=== PATIENT | male | born 1990 | race Caucasian/White ===

== ENCOUNTER 2025-04-05 14:47 | Outpatient (AMB) | payer OTHER, SELFPAY ==
--- NOTE | 2025-04-05 14:51 | MHC.PC.OV ---
Vital Signs 04/05/25 14:58 04/05/25 15:05 04/05/25 15:46 04/05/25 15:46 04/05/25 16:10 04/05/25 16:11 Height 5 ft 9.75 in Weight 220 lb 2 oz BMI 31.8 BP 166/112 H 162/100 H 164/104 H 170/110 H 160/100 H 168/110 H Blood Pressure Location Rt brachial Lt brachial Rt brachial Lt brachial Rt brachial Lt brachial Position Sitting Sitting Sitting Sitting Sitting Sitting Respiration 16 Pulse 127 H 127 H 122 H 122 H Pulse Source Pulse Oximeter Pulse Oximeter Pulse Oximeter Temp 98 F Temp Source Temporal Artery Scan Pulse Oximetry (%) 97 Oxygen Delivery Method Room Air Intake Visit Reasons: SPECIAL EDUCATION COORDINATOR- Annual PE Intake Note: Ronaldo presents in the office today to establish care. Allergies No Known Allergies Allergy (Unverified 04/05/25 14:54) Medication List - Last Reconciled 04/05/25 by Ian Serrato MD clonidine HCl 0.1 mg PO TID PRN 30 days folic acid 0.4 mg PO DAILY 90 days mecobalamin (vitamin B12) 500 mcg PO DAILY 90 days thiamine HCl (vitamin B1) 100 mg PO DAILY 90 days Tobacco use date assessed: 04/05/25 Dental Screening Dental Screen Date: 04/05/25 Did you have a dental visit in the last 12 months?: No Did you have a dental problem in the last 6 months where you did not have access to dental care?: No Was dental information given to patient?: Yes HPI SPECIAL EDUCATION COORDINATOR- Annual PE HPI Details New Patient? ?? Prior PCP:?No Recent PCP Last office visit/CPE:? > 15 yrs Acute issue(s):? Alcoholism - Pt would like help quitting. HTN & Tachycardia - likely secondary to some EtOH withdrawal. Paresthesias ?? PMHx:?Alcoholism, HTN, Gout, SurgHx:?Kidney stone. FHx:?Mom: Depression. Dad: EtOH. SocHx: Smokes 1ppd, EtOH Average 10-12 shots 100proof vodka. No drugs PFSH Medical History (Updated 04/05/25 @ 15:15 by Shashi Walsh) Eczema Hypertension Kidney stones Surgical History (Updated 04/05/25 @ 15:08 by Summer Gottlieb [facility]) History of placement of ear tubes Family History (Updated 04/05/25 @ 15:09 by Summer Gottlieb CMA) Mother FH: mental illness Depression Diabetes Father Substance abuse Alcoholism Maternal Grandfather Substance abuse Alcoholism Social History (Updated 04/05/25 @ 14:58 by Summer Gottlieb [facility]) Housing: Apartment Alcohol intake: current Patient Tobacco Use Status: Current everyday Tobacco user Cigarette Packs Per Day: 1 Cigarettes Per Day: 20 e-Cigarette/Vaping Use: Never Used Second Hand Smoke Exposure: Yes service: No Current occupational status: employed Current occupation: [employer] Current occupational exposures/hazards: Yes Cognitive needs: No Hearing needs: Yes Vision needs: No Questionnaire PHQ-9 Over the last 2 weeks, how often have you been bothered by any of the following problems? 1. Little interest or pleasure in doing things: not at all 2. Feeling down, depressed, or hopeless: several days 3. Trouble falling or staying asleep, or sleeping too much: not at all 4. Feeling tired or having little energy: not at all 5. Poor appetite or overeating: not at all 6. Feeling bad about yourself - or that you are a failure or have let yourself or your family down: not at all 7. Trouble concentrating on things, such as reading the newspaper or watching television: not at all 8. Moving or speaking so slowly that other people could have noticed. Or the opposite - being so fidgety or restless that you have been moving around a lot more than usual: not at all 9. Thoughts that you would be better off or of hurting yourself in some way: not at all Total score: 1 Depression Screening Interpretation: Negative Depression Screening Done: Yes 56232 - PHQ-9 Billing: Yes Source: Developed by Drs. Edgard Tello, Alexus Yu, Yosi Storm and colleagues, with an educational mumtaz from [employer]. Thrive Questionnaire Date Thrive assessed: 04/05/25 I am a: Patient What is your living situation today?: I have a place to live, but I am worried about losing it in the future Within the past 12 months, did the food you bought not last and you didn't have the money to get more?: Sometimes True Within the past 12 months, did you worry whether your food would run out before you got money to buy more?: Sometimes True Do you have trouble paying for medicines?: No Do you have trouble getting transportation to medical appointments?: No Do you have trouble paying your heating and electricity bill?: Yes Do you have trouble taking care of your child, family member or friend?: No Do you have trouble with day-to-day activities such as bathing, preparing meals, shopping, managing finances, etc.?: Yes Are you currently unemployed and looking for a job?: No Are you interested in more education?: No Please select the resources that you would like help with: Housing/Long Term, Food and Utilities Currently or been in a relationship where the following occur: No concerns reported THRIVE Score: 4 AUDIT C Alcohol Use Questionnaire (AUDIT-C) 1. How often do you have a drink containing alcohol?: 4 or more times a week 2. How many drinks containing alcohol do you have on a typical day when you are drinking?: 10 or more 3. How often do you have six or more drinks on one occasion?: Daily or almost daily Total Score: 12 CHRIS-7 AMB Questionnaire CHRIS-7 Date CHRIS - 7 assessed: 04/05/25 Feeling nervous, anxious, or on edge: 2 = More than half the days Not being able to stop or control worryin = Several days Worrying too much about different things: 1 = Several days Trouble relaxin = Several days Being so restless that it is hard to sit still: 1 = Several days Becoming easily annoyed or irritable: 1 = Several days Feeling afraid as if something awful might happen: 1 = Several days Total CHRIS-7 score (0-4 normal; 5-9 mild; 10-14 moderate; 15-21 severe): 8 Source: Developed by Drs. Edgard Tello, Alexus Yu, Yosi Storm and colleagues, with an educational mumtaz from [employer]. CHRIS-7 Assessment Billing CHRIS-7 Assessment Tool: CHRIS-7 Assessment 14997 Review of Systems Const Denies chills, Denies fatigue, Denies fever(s), Denies headache(s) and Denies weakness ENT Denies dizziness and Denies headache(s) Card Denies chest pain, Denies lightheadedness, Denies dyspnea and Denies other (Palpitations) Resp Denies cough, Denies dyspnea, Denies wheezing and Denies other ( shortness of breath) Musc Denies numbness and Denies tingling Neuro Denies dizziness, Denies headache(s), Denies numbness, Denies tingling, Denies paresthesias and Denies weakness Psych Denies anxiety and Denies depression Endo Denies fatigue Aller/Immun Denies wheezing Physical exam (Primary Care) Vital Signs: Last Vital Signs Temp 98 F 04/05/25 14:58 Pulse 122 H 04/05/25 16:10 Resp 16 04/05/25 14:58 BP 168/110 H 04/05/25 16:11 Pulse Ox 97 04/05/25 14:58 Oxygen Delivery Method Room Air 04/05/25 14:58 BMI result Body Mass Index 31.8 Tobacco/Smoking Status: Tobacco use Status Tobacco use date assessed 04/05/25 04/05/25 14:57 Patient Tobacco Use Status Current everyday Tobacco 04/05/25 14:58 e-Cigarette/Vaping Use Never Used 04/05/25 14:58 PHQ-9: PHQ-9 Score PHQ-9: Total score 1 04/06/25 13:34 Depression Screening Interpretation: Negative Thrive Assessment: Date of Thrive Assessment Date Thrive assessed 04/05/25 04/05/25 15:01 Currently or been in a relationship where the following occur: No concerns reported Const General: no acute distress and well developed Nutritional Appearance: well nourished Orientation/consciousness: patient oriented x3 HENMT Head: Yes normocephalic and Yes atraumatic Eyes General: appearance normal, both eyes and all related structures Pupils: Equal, round and reactive pupils present EOM: EOMs intact bilaterally Resp Effort & Inspection: normal respiratory effort Auscultation: clear to auscultation bilaterally Cardio Rate: regular rate Rhythm: regular rhythm Heart sounds: S1 normal heart sound present, S2 normal heart sound present, no gallops, no murmurs and no rubs Neuro General: patient oriented x3 and gait normal Cranial nerves: Yes Equal, round and reactive pupils present Psych Affect: normal affect Coding Level of Care Code New Pt Level 4 (90562) Diagnoses Alcohol abuse F10.10 Hypertension I10 Anxiety F41.9 Housing instability Z59.819 Tachycardia R00.0 Gout M10.9 Laboratory exam ordered as part of routine general medical examination Z00.00 Smoker F17.200 Additional Codes CHRIS-7 Assessment Billing - CHRIS-7 Assessment Tool: CHRIS-7 Assessment 16347 ([id number]) PHQ-9 - 63514 - PHQ-9 Billing: Yes ([id number]) Assessment & Plan Assessment & Plan (1) Alcohol abuse: Code(s): F10.10 - Alcohol abuse, uncomplicated Category: Social Hx Plan: Significant alcohol abuse Encouraged patient to work at weaning down; do not recommend cold turkey as patient is drinking considerable amounts of alcohol daily. [facility] Will give a script clonidine high blood pressure and tachycardia due to withdrawal symptoms. Will give script for B12, thiamine and folate Close follow-up (2) Hypertension: Code(s): I10 - Essential (primary) hypertension Category: Medical Plan: EKG: (3) Anxiety: Code(s): F41.9 - Anxiety disorder, unspecified Category: Medical (4) Housing instability: Code(s): Z59.819 - Housing instability, housed unspecified Category: Social Hx (5) Tachycardia: Code(s): R00.0 - Tachycardia, unspecified Category: Medical (6) Gout: Code(s): M10.9 - Gout, unspecified Category: Medical (7) Laboratory exam ordered as part of routine general medical examination: Code(s): Z00.00 - Encounter for general adult medical examination without abnormal findings Category: Medical (8) Smoker: Code(s): F17.200 - Nicotine dependence, unspecified, uncomplicated Category: Social Hx Plan Patient notes housing instability and I have asked the nurse navigator to evaluate for services Smoking a pack a day and recommended he work at weaning down - we will discuss cessation at a future visit Paresthesia in bilateral feet and also hands. May be directly action of alcohol abuse. May be indirectly as he may have diabetes. Checking A1c with lab work History of gout. Checking uric acid level Patient notes that when he tries to quit alcohol and he gets flare-up of gout We may need to address this with medications such as colchicine. Will follow-up at his next visit in a week. Orders: Orders Lipid Panel 04/06/25 Z00.00 - Encounter for general adult medical examination without abnormal findings Microalbumin, Random (w Creat) 04/06/25 I10 - Essential (primary) hypertension TSH reflex Free T4 04/06/25 Z00.00 - Encounter for general adult medical examination without abnormal findings UA CC w/rflx Micro + Cult 04/06/25 Z00.00 - Encounter for general adult medical examination without abnormal findings Uric Acid 04/06/25 M10.9 - Gout, unspecified Lipase 04/06/25 F10.10 - Alcohol abuse, uncomplicated LDL Cholesterol Direct 04/06/25 E78.5 - Hyperlipidemia, unspecified, I10 - Essential (primary) hypertension Comprehensive Met. Panel 04/06/25 I10 - Essential (primary) hypertension Complete Blood Count Auto Diff 04/06/25 I10 - Essential (primary) hypertension, Z00.00 - Encounter for general adult medical examination without abnormal findings Hemoglobin A1c 04/06/25 R73.01 - Impaired fasting glucose AMB EKG-In Office 04/05/25 R00.0 - Tachycardia, unspecified Vitamin B12 and Folate 04/06/25 E53.8 - Deficiency of other specified B group vitamins, F10.10 - Alcohol abuse, uncomplicated Troponin-I High Sensitivity 04/06/25 I10 - Essential (primary) hypertension Referrals Nurse Navigator Referral F41.9 - Anxiety disorder, unspecified, Z59.819 - Housing instability, housed unspecified Addiction Medicine Referral F10.10 - Alcohol abuse, uncomplicated Medications: New folic acid 0.4 mg PO DAILY 90 tabs 3RF 90 days clonidine HCl 0.1 mg PO TID PRN 90 tabs 1RF alcohol withdrawal 30 days F10.10 - Alcohol abuse, uncomplicated cyanocobalamin (vitamin B-12) (Vitamin B-12) 500 mcg PO DAILY 90 tabs 2RF 90 days thiamine HCl (vitamin B1) 100 mg PO DAILY 90 tabs 3RF 90 days mecobalamin (vitamin B12) 500 mcg PO DAILY 90 tabs 3RF 90 days losartan 50 mg PO DAILY 90 tabs 3RF 90 days
[2025-04-05 14:58] VITALS: BP 166/112; PULSE 127; RESP 16; TEMP 36.6; O2SAT 97; BMI 31.8
[2025-04-05 15:05] VITALS: BP 162/100; PULSE 127
[2025-04-05 15:46] VITALS: BP 164/104; BP 170/110; PULSE 122
[2025-04-05 16:10] VITALS: BP 160/100; PULSE 122
[2025-04-05 16:11] VITALS: BP 168/110
== END 2025-04-05 16:20 | disposition home or self-care (01) ==
LOC: HO.HMCFM 14:48
PROVIDERS: PCP Family Medicine; Visit Provider Family Medicine
DX: F10.10 Alcohol abuse, uncomplicated (principal); I10 Essential (primary) hypertension; F41.9 Anxiety disorder, unspecified; Z59.819 Housing instability, housed unspecified; R00.0 Tachycardia, unspecified; M10.9 Gout, unspecified; Z00.00 Encounter for general adult medical examination without abnormal findings; F17.200 Nicotine dependence, unspecified, uncomplicated

== ENCOUNTER → 2025-04-05 14:47 | Outpatient (BNVA) | payer OTHER, SELFPAY | PROVIDERS: PCP Family Medicine; Visit Provider Family Medicine | DX: Z00.00 Encounter for general adult medical examination without abnormal findings (principal); I10 Essential (primary) hypertension; R00.0 Tachycardia, unspecified; F10.130 Alcohol abuse with withdrawal, uncomplicated; F41.9 Anxiety disorder, unspecified; M10.9 Gout, unspecified; F17.210 Nicotine dependence, cigarettes, uncomplicated; Z59.819 Housing instability, housed unspecified | CPT/HCPCS: 96127 ==

== ENCOUNTER 2025-04-06 15:22 | Outpatient (REF) | payer OTHER, SELFPAY ==
[2025-04-06 18:17] LABS: MANUAL DIFF FLAG NO
[2025-04-06 18:26] LABS: Appearance Urine Clear; Glucose Urine UA >=1000 mg/dL (Negative); PH 6.0 (5.0-9.0); Specific Gravity - Urine >= 1.030 (1.005-1.025); UMIC TRIGGER UACC YES
[2025-04-06 18:35] LABS: Hematocrit 44.2 % (42.0-52.0); Hemoglobin 16.0 g/dl (14.0-18.0); Imm Gran Abs Auto 0.04 X10*3/uL (0.00-0.03); Imm Gran Pct Auto 0.5 % (0.0-0.4); Lymphocytes Absolute Auto 2.2 X10*3/uL (1.2-4.9); Mean Corpuscular HGB Conc 36.2 g/dl (31.0-36.0); Mean Corpuscular Hemoglobin 35.6 pg (27.0-33.0); Mean Corpuscular Volume 98.4 fL (80.0-98.0); NRBC Abs Auto 0.000 X10*3/uL (0.0-0.012); NRBC Pct Auto 0.0 /100WBC (0.0-0.2); Platelet Count 180 X10*3/uL (160-400); Red Blood Count 4.49 X10*6/uL (4.60-5.80); White Blood Count 7.3 X10*3/uL (4.8-10.8)
[2025-04-06 18:41] LABS: Troponin-I High Sensitivity 5.3 ng/L (<3.5-35.0)
[2025-04-06 18:52] LABS: Alanine Aminotransferase 162 U/L (0-40); Albumin Level 4.7 g/dL (3.5-5.0); Anion Gap 19 (12-20); Aspartate Amino Transferase 111 U/L (5-37); Blood Urea Nitrogen 8 mg/dL (9-16); Calcium 9.7 mg/dL (8.4-10.2); Carbon Dioxide 25 mmol/L (22-29); Chloride 97 mmol/L (96-108); Cholesterol 512 mg/dL (<200); Estimated Glomerular Filt Rate > 60; HDL Cholesterol 38 mg/dL (>40); Lipase 19 U/L (8-78); Potassium 3.2 mmol/L (3.3-5.1); Sodium 138 mmol/L (135-145); Total Protein 7.9 g/dL (6.5-8.0)
[2025-04-06 19:00] LABS: Microalbum/Creatinine Ratio Ur 59.1 ug/mg cr (<30)
[2025-04-06 19:01] LABS: Triglycerides 2032 mg/dL (<150)
[2025-04-06 19:13] LABS: Folate 8.2 ng/mL (> or = 4.0); Vitamin B12 178 pg/mL (200-900)
[2025-04-06 19:20] LABS: Alkaline Phosphatase 81 U/L (39-117); Uric Acid 7.6 mg/dL (3.4-7.0)
== END 2025-04-06 15:23 | disposition home or self-care (01) ==
LOC: HO.WFDLDS 15:22
PROVIDERS: Visit Provider Family Medicine
DX: Z00.00 Encounter for general adult medical examination without abnormal findings (principal); E53.8 Deficiency of other specified B group vitamins; F10.10 Alcohol abuse, uncomplicated; E78.5 Hyperlipidemia, unspecified; M10.9 Gout, unspecified; I10 Essential (primary) hypertension; R73.01 Impaired fasting glucose
CPT/HCPCS: 36415; 80053; 80061; 81001; 82043; 82570; 82607; 82746; 83036; 83690; 83721; 84443; 84484; 84550; 85025

== ENCOUNTER 2025-04-14 10:24 | Outpatient (AMB) | payer OTHER, SELFPAY ==
--- NOTE | 2025-04-14 10:31 | MHC.PC.OV ---
Vital Signs 04/14/25 10:34 04/14/25 10:36 Height 5 ft 9 in Weight 223 lb BMI 32.9 BP 140/90 H 138/90 H Blood Pressure Location Rt brachial Rt brachial Position Sitting Sitting Respiration 18 Pulse 115 H Pulse Source Pulse Oximeter Temp 98.3 F Temp Source Oral Pulse Oximetry (%) 96 Oxygen Delivery Method Room Air Intake Visit Reasons: f/u hypertension, tachycardia Intake Note: patient is scheduled for a folllow up on lab htn and tachycardia Rate Reviewer Required: No Allergies No Known Allergies Allergy (Verified 04/14/25 10:32) Medication List - Last Reconciled 04/14/25 by Ian Serrato MD clonidine HCl 0.1 mg PO TID PRN 30 days cyanocobalamin (vitamin B-12) (Vitamin B-12) 500 mcg PO DAILY 90 days folic acid 0.4 mg PO DAILY 90 days losartan 50 mg PO DAILY 90 days mecobalamin (vitamin B12) 500 mcg PO DAILY 90 days thiamine HCl (vitamin B1) 100 mg PO DAILY 90 days Tobacco use date assessed: 04/05/25 Dental Screening Dental Screen Date: 04/05/25 HPI f/u hypertension, tachycardia HPI Details 34 y/o male presents to f/u hypertension, tachycardia. BP today 138/90, 115p. He is on losartan 50mg daily. Also has clonidine. Labs drawn 04/06/25. Reviewed labs with pt. A1c 11.2%. He is not on any meds for diabetes. Elevated liver enzymes - AST 111, ALT 62. Triglycerides 2032. TC 512. LDL 180. HDL low at 38. Vitamin B12 low at 178. [facility] Medical History (Updated 04/14/25 @ 11:24 by Shashi Walsh) Eczema Hypertension Kidney stones Surgical History (Updated 04/05/25 @ 15:08 by Summer Gottlieb CMA) History of placement of ear tubes Family History (Updated 04/05/25 @ 15:09 by Summer Gottlieb CMA) Mother FH: mental illness Depression Diabetes Father Substance abuse Alcoholism Maternal Grandfather Substance abuse Alcoholism Social History (Updated 04/05/25 @ 14:58 by Summer Gottlieb CMA) Housing: Apartment Alcohol intake: current Patient Tobacco Use Status: Current everyday Tobacco user Cigarette Packs Per Day: 1 Cigarettes Per Day: 20 e-Cigarette/Vaping Use: Never Used Second Hand Smoke Exposure: Yes service: No Current occupational status: employed Current occupation: [employer] Current occupational exposures/hazards: Yes Cognitive needs: No Hearing needs: Yes Vision needs: No Questionnaire Thrive Questionnaire Date Thrive assessed: 04/02/25 I am a: Patient What is your living situation today?: I have a place to live, but I am worried about losing it in the future Within the past 12 months, did the food you bought not last and you didn't have the money to get more?: Sometimes True Within the past 12 months, did you worry whether your food would run out before you got money to buy more?: Sometimes True Do you have trouble paying for medicines?: No Do you have trouble getting transportation to medical appointments?: No Do you have trouble paying your heating and electricity bill?: Yes Do you have trouble taking care of your child, family member or friend?: No Do you have trouble with day-to-day activities such as bathing, preparing meals, shopping, managing finances, etc.?: Yes Are you currently unemployed and looking for a job?: No Are you interested in more education?: No Currently or been in a relationship where the following occur: No concerns reported THRIVE Score: 4 CHRIS-7 AMB Questionnaire CHRIS-7 Date CHRIS - 7 assessed: 04/05/25 Source: Developed by Drs. Edgard Tello, Alexus Yu, Yosi Storm and colleagues, with an educational mumtaz from [facility]. Review of Systems Const Denies chills, Denies fatigue, Denies fever(s), Denies headache(s) and Denies weakness ENT Denies dizziness and Denies headache(s) Card Denies dyspnea Resp Denies cough, Denies dyspnea, Denies wheezing and Denies other (shortness of breath) Musc Denies numbness and Denies tingling Neuro Denies dizziness, Denies headache(s), Denies numbness, Denies tingling and Denies weakness Psych Denies anxiety and Denies depression Endo Denies fatigue Aller/Immun Denies wheezing Physical exam (Primary Care) Vital Signs: Last Vital Signs Temp 98.3 F 04/14/25 10:34 Pulse 115 H 04/14/25 10:34 Resp 18 04/14/25 10:34 BP 138/90 H 04/14/25 10:36 Pulse Ox 96 04/14/25 10:34 Oxygen Delivery Method Room Air 04/14/25 10:34 BMI result Body Mass Index 32.9 Tobacco/Smoking Status: Tobacco use Status Tobacco use date assessed 04/05/25 04/14/25 10:39 Patient Tobacco Use Status Current everyday Tobacco 04/14/25 10:39 e-Cigarette/Vaping Use Never Used 04/14/25 10:39 Thrive Assessment: Date of Thrive Assessment Date Thrive assessed 04/02/25 04/14/25 10:39 Currently or been in a relationship where the following occur: No concerns reported Const General: well developed; No acute distress Nutritional Appearance: well nourished Orientation/consciousness: patient oriented x3 HENMT Head: Yes normocephalic and Yes atraumatic Eyes General: appearance normal, both eyes and all related structures Pupils: Equal, round and reactive pupils present EOM: EOMs intact bilaterally Resp Effort & Inspection: normal respiratory effort Neuro General: patient oriented x3 and gait normal Cranial nerves: Yes Equal, round and reactive pupils present Psych Affect: normal affect Coding Level of Care Code Est Pt Level 4 (89163) Diagnoses Hypertension I10 Tachycardia R00.0 Alcohol abuse F10.10 Mixed hyperlipidemia E78.2 Hypertriglyceridemia E78.1 Uncontrolled diabetes mellitus with hyperglycemia E11.65 Elevated liver enzymes R74.8 Assessment & Plan Assessment & Plan (1) Hypertension: Code(s): I10 - Essential (primary) hypertension Category: Medical Plan: Blood pressure is improving on losartan 50 mg daily and clonidine 0.1 mg t.i.d., prn Increasing losartan to 100 mg daily Take clonidine t.i.d. Hydrate well (2) Tachycardia: Code(s): R00.0 - Tachycardia, unspecified Category: Medical Plan: Still tachycardic though this has improved also. Likely primarily due to dehydration and alcohol abuse/withdrawal Increase hydration Continue clonidine t.i.d. Work at weaning of alcohol (3) Alcohol abuse: Code(s): F10.10 - Alcohol abuse, uncomplicated Category: Social Hx Plan: Had [facility] He says they have reached out but he has not been appointment yet. Advised he give him a call and he says he will do so Encouraged him to continue weaning down on alcohol Hydrate well Continue clonidine t.i.d. Lipase level normal Liver enzymes are elevate he is working on weaning alcohol. Will continue to follow (4) Mixed hyperlipidemia: Code(s): E78.2 - Mixed hyperlipidemia Category: Medical Plan: Severely high triglycerides and he will start fenofibrate Work on blood sugar control-see below TC and LDL are too high with slightly low HDL also. No medication changes for this at this time. Will continue to monitor (5) Hypertriglyceridemia: Code(s): E78.1 - Pure hyperglyceridemia Category: Medical Plan: As above Lipase level is normal (6) Uncontrolled diabetes mellitus with hyperglycemia: Code(s): E11.65 - Type 2 diabetes mellitus with hyperglycemia Category: Medical Plan: Start metformin Referred to the nurse navigator for diabetic teaching Decrease sugars and starches in diet Hydrate well Close follow-up in 1 month (7) Elevated liver enzymes: Code(s): R74.8 - Abnormal levels of other serum enzymes Category: Medical Plan: As above, liver enzymes are elevated. He is working on weaning down alcohol. He will make an appointment with [facility] Will continue to follow liver enzymes Orders: Referrals Nurse Navigator Referral E11.65 - Type 2 diabetes mellitus with hyperglycemia Medications: New metformin 500 mg PO BIDWMEAL 180 tabs 2RF 90 days fenofibrate 160 mg PO DAILY 90 tabs 2RF 90 days Changed From losartan 50 mg PO DAILY 90 days 90 tabs 3RF To losartan 100 mg (2 x 50 mg) PO DAILY 180 tabs 3RF 90 days
[2025-04-14 10:34] VITALS: BP 140/90; PULSE 115; RESP 18; TEMP 36.8; O2SAT 96; BMI 32.9
[2025-04-14 10:36] VITALS: BP 138/90
== END 2025-04-14 11:44 | disposition home or self-care (01) ==
LOC: HO.HMCFM 10:25
PROVIDERS: PCP Family Medicine; Visit Provider Family Medicine
DX: I10 Essential (primary) hypertension (principal); R00.0 Tachycardia, unspecified; E11.65 Type 2 diabetes mellitus with hyperglycemia; F10.10 Alcohol abuse, uncomplicated; E78.2 Mixed hyperlipidemia; E78.1 Pure hyperglyceridemia; R74.8 Abnormal levels of other serum enzymes

== ENCOUNTER 2025-05-18 10:20 | Outpatient (AMB) | payer OTHER, SELFPAY ==
--- NOTE | 2025-05-18 10:23 | A.OFFPC_ITS ---
Vital Signs 05/18/25 10:31 Height 5 ft 9 in Weight 215 lb 2 oz BMI 31.8 BP 122/78 Blood Pressure Location Rt brachial Position Sitting Respiration 18 Pulse 105 H Pulse Source Pulse Oximeter Temp 98.8 F Temp Source Temporal Artery Scan Pulse Oximetry (%) 97 Oxygen Delivery Method Room Air Intake Visit Reasons: f/u diabetes, HTN, lipids Intake Note: Ronaldo presents in the office for a follow up to diabetes, cholesterol and hypertension. Patient states that he is not taking Losarton that was prescribed ended up in the ER. Allergies No Known Allergies Allergy (Verified 05/18/25 10:28) Medication List - Last Reconciled 05/18/25 by Ian Serrato MD amlodipine 5 mg PO BID clonidine HCl 0.1 mg PO TID PRN 30 days cyanocobalamin (vitamin B-12) (Vitamin B-12) 500 mcg PO DAILY 90 days fenofibrate 160 mg PO DAILY 90 days folic acid 0.4 mg PO DAILY 90 days labetalol 100 mg PO BID mecobalamin (vitamin B12) 500 mcg PO DAILY 90 days metformin 500 mg PO BIDWMEAL 90 days thiamine HCl (vitamin B1) 100 mg PO DAILY 90 days Tobacco use date assessed: 05/18/25 Dental Screening Dental Screen Date: 05/18/25 Did you have a dental visit in the last 12 months?: No Did you have a dental problem in the last 6 months where you did not have access to dental care?: No Was dental information given to patient?: Patient declined HPI f/u diabetes, HTN, lipids HPI Details 34 y/o male presents to f/u diabetes, HT N, lipids. Last A1c 04/06/25 11.2%. Started him on metformin and referred to nurse navigator for diabetic teaching. A1c today 8.7%. Blood pressure [id number], 105p. Recent hospital visit for shortness of breath, palpitations, lightheadedness. Patient was trying to quit drinking and heart rate and blood pressure spiked. Went to [place] ED with hypertensive crisis and creatinine level 3.73 and EGFR 21. Losartan and metformin were held due to TATY He was placed on a CIWA scale. Patient received fluids and hypertension was managed with labetalol - he was given labetalol and amlodipine to control blood pressure as an outpatient and blood pressure today 112/78. At discharge 2 days late [facility] Medical History (Updated 05/18/25 @ 10:49 by Shashi Walsh) Eczema Hypertension Kidney stones Surgical History (Updated 04/05/25 @ 15:08 by Summer Gottlieb CMA) History of placement of ear tubes Family History Mother FH: mental illness Depression Diabetes Father Substance abuse Alcoholism Maternal Grandfather Substance abuse Alcoholism Social History (Updated 05/18/25 @ 10:31 by Summer Gottlieb CMA) Housing: Apartment Alcohol intake: current Patient Tobacco Use Status: Current everyday Tobacco user Cigarette Packs Per Day: 1 Cigarettes Per Day: 20 e-Cigarette/Vaping Use: Never Used Second Hand Smoke Exposure: Yes service: No Current occupational status: employed Current occupation: [employer] Current occupational exposures/hazards: Yes Cognitive needs: No Hearing needs: Yes Vision needs: No Questionnaire Thrive Questionnaire Date Thrive assessed: 04/02/25 I am a: Patient What is your living situation today?: I have a place to live, but I am worried about losing it in the future Within the past 12 months, did the food you bought not last and you didn't have the money to get more?: Sometimes True Within the past 12 months, did you worry whether your food would run out before you got money to buy more?: Sometimes True Do you have trouble paying for medicines?: No Do you have trouble getting transportation to medical appointments?: No Do you have trouble paying your heating and electricity bill?: Yes Do you have trouble taking care of your child, family member or friend?: No Do you have trouble with day-to-day activities such as bathing, preparing meals, shopping, managing finances, etc.?: Yes Are you currently unemployed and looking for a job?: No Are you interested in more education?: No Currently or been in a relationship where the following occur: No concerns reported THRIVE Score: 4 CHRIS-7 AMB Questionnaire CHRIS-7 Date CHRIS - 7 assessed: 04/05/25 Source: Developed by Drs. Edgard Tello, Alexus Yu, Yosi Storm and colleagues, with an educational mumtaz from [employer]. Review of Systems Const Denies chills, Denies fatigue, Denies fever(s), Denies headache(s) and Denies weakness ENT Denies dizziness and Denies headache(s) Card Denies dyspnea Resp Denies cough, Denies dyspnea, Denies wheezing and Denies other (shortness of breath) Musc Denies numbness and Denies tingling Neuro Denies dizziness, Denies headache(s), Denies numbness, Denies tingling and Denies weakness Psych Denies anxiety and Denies depression Endo Denies fatigue Aller/Immun Denies wheezing Physical exam (Primary Care) Vital Signs: Last Vital Signs Temp 98.8 F 05/18/25 10:31 Pulse 105 H 05/18/25 10:31 Resp 18 05/18/25 10:31 BP 122/78 05/18/25 10:31 Pulse Ox 97 05/18/25 10:31 Oxygen Delivery Method Room Air 05/18/25 10:31 BMI result Body Mass Index 31.8 Tobacco/Smoking Status: Tobacco use Status Tobacco use date assessed 05/18/25 05/18/25 10:33 Patient Tobacco Use Status Current everyday Tobacco 05/18/25 10:31 e-Cigarette/Vaping Use Never Used 05/18/25 10:31 Thrive Assessment: Date of Thrive Assessment Date Thrive assessed 04/02/25 05/18/25 10:25 Currently or been in a relationship where the following occur: No concerns reported Const General: well developed; No acute distress Nutritional Appearance: well nourished Orientation/consciousness: patient oriented x3 [facility] Head: Yes normocephalic and Yes atraumatic Eyes General: appearance normal, both eyes and all related structures Pupils: Equal, round and reactive pupils present EOM: EOMs intact bilaterally Resp Effort & Inspection: normal respiratory effort Neuro General: patient oriented x3 and gait normal Cranial nerves: Yes Equal, round and reactive pupils present Psych Affect: normal affect Results AMB Hemoglobin A1c AMB Hemoglobin A1c 8.7 % Last Edit by Summer Gottlieb CMA on 05/18/25 10:41 Results Reviewed Results Reviewed: Laboratory Last Values Hgb A1c (Clinic) 8.7 % (4.0-6.0) H 05/18/25 10:40 Coding Diagnoses Uncontrolled diabetes mellitus with hyperglycemia E11.65 Hypertension I10 Palpitations R00.2 TATY (acute kidney injury) N17.9 Alcohol abuse F10.10 Assessment & Plan Assessment & Plan (1) Uncontrolled diabetes mellitus with hyperglycemia: Code(s): E11.65 - Type 2 diabetes mellitus with hyperglycemia Category: Medical (2) Hypertension: Code(s): I10 - Essential (primary) hypertension Category: Medical (3) Palpitations: Code(s): R00.2 - Palpitations Category: Medical (4) TATY (acute kidney injury): Code(s): N17.9 - Acute kidney failure, unspecified Category: Medical (5) Alcohol abuse: Code(s): F10.10 - Alcohol abuse, uncomplicated Category: Social Hx Plan Patient was trying to quit drinking and heart rate and blood pressure spiked. Went to [place] ED with hypertensive crisis and creatinine level 3.73 and EGFR 21. Losartan and metformin were held due to TATY He was placed on a CIWA scale. Patient received fluids and hypertension was managed with labetalol - he was given labetalol and amlodipine to control blood pressure as an outpatient and blood pressure today 112/78. At discharge 2 days later, 05/03/2025, creatinine was 1.7 for an EGFR 51. Significantly improved. They had recommended he can resume metformin but he has not done so yet. Will have him continue to hold this and will recheck renal function. Will give him Lantus 8 units daily - he notes he has made significant changes in diet A1c today has improved from 11.2 at last visit to 8.7%. However, no longer on metformin as above. Continue diabetic diet and Lantus 8 units daily Patient says he remains abstinent of alcohol. He had canceled his appointment with addiction medicine. Recommended that he follow-up with them. Patient declines but agrees to go as a walk-in if he is having difficulties maintaining abstinence Close follow-up in 2 weeks to review labs Orders: Orders AMB Hemoglobin A1c Today E11.65 - Type 2 diabetes mellitus with hyperglycemia [facility] Panel Fast Today Z00.00 - Encounter for general adult medical examination without abnormal findings Lipid Panel Today Z00.00 - Encounter for general adult medical examination without abnormal findings
[2025-05-18 10:31] VITALS: BP 122/78; PULSE 105; RESP 18; TEMP 37.1; O2SAT 97; BMI 31.8
== END 2025-05-18 11:17 | disposition home or self-care (01) ==
LOC: HO.HMCFM 10:21
PROVIDERS: PCP Family Medicine; Visit Provider Family Medicine
DX: E11.65 Type 2 diabetes mellitus with hyperglycemia (principal)

== ENCOUNTER → 2025-05-18 10:20 | Outpatient (BNVA) | payer OTHER, SELFPAY | PROVIDERS: PCP Family Medicine; Visit Provider Family Medicine | DX: E11.65 Type 2 diabetes mellitus with hyperglycemia (principal); I10 Essential (primary) hypertension; R00.2 Palpitations; N17.9 Acute kidney failure, unspecified; F10.10 Alcohol abuse, uncomplicated | CPT/HCPCS: 83036 ==

== ENCOUNTER 2025-05-23 14:08 | Outpatient (REF) | payer OTHER, SELFPAY ==
[2025-05-23 19:50] LABS: Alanine Aminotransferase 89 U/L (0-40); Albumin Level 5.1 g/dL (3.5-5.0); Alkaline Phosphatase 96 U/L (39-117); Anion Gap 16 (12-20); Aspartate Amino Transferase 51 U/L (5-37); Blood Urea Nitrogen 17 mg/dL (9-16); Calcium 10.2 mg/dL (8.4-10.2); Carbon Dioxide 24 mmol/L (22-29); Chloride 104 mmol/L (96-108); Cholesterol 308 mg/dL (<200); Estimated Glomerular Filt Rate > 60; HDL Cholesterol 32 mg/dL (>40); Potassium 3.9 mmol/L (3.3-5.1); Sodium 140 mmol/L (135-145); Total Protein 8.2 g/dL (6.5-8.0); Triglycerides 529 mg/dL (<150)
[2025-05-23 19:51] LABS: Appearance Urine Turbid; Glucose Urine UA Negative (Negative); PH 5.5 (5.0-9.0); Specific Gravity - Urine 1.020 (1.005-1.025); UMIC TRIGGER UACC YES
== END 2025-05-23 14:09 | disposition home or self-care (01) ==
LOC: HO.WFDLDS 14:08
PROVIDERS: Visit Provider Family Medicine
DX: Z00.00 Encounter for general adult medical examination without abnormal findings (principal); Z13.6 Encounter for screening for cardiovascular disorders
CPT/HCPCS: 36415; 80053; 80061; 81001; 81003

== ENCOUNTER 2025-05-30 13:43 | Outpatient (AMB) | payer OTHER, SELFPAY ==
--- NOTE | 2025-05-30 13:56 | MHC.PC.OV ---
Vital Signs 05/30/25 14:00 05/30/25 14:05 05/30/25 14:51 Height 5 ft 9 in Weight 216 lb 6 oz BMI 31.9 BP 164/94 H 164/96 H 142/80 H Blood Pressure Location Lt brachial Lt brachial Lt brachial Position Sitting Sitting Respiration 16 Pulse 111 H Pulse Source Pulse Oximeter Temp 99.2 F Temp Source Oral Pulse Oximetry (%) 99 Oxygen Delivery Method Room Air Intake Visit Reasons: f/u htn, labs, kidney functions Intake Note: Follow up. 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 Labs drawn 05/23/25. Reviewed labs with pt. Elevated liver enzymes. AST 51. ALT 89. Triglycerides 529. TC 308. LDL TNP. HDL low at 32. Blood pressure today 164/94, 111p. He is on labetalol, amlodipine 5mg b.i.d. Also on clonidine 0.1mg p.r.n. Had went to [place] ED with hypertensive crisis and creatinine level 3.73 and EFGR 21. Creatinine level 1.01 mg/dL most recent check. Last EtOH use per pt about 3 days ago. A1c today 05/30/25 8.2%. [facility] Medical History (Updated 05/18/25 @ 10:49 by Shashi Walsh) Eczema Hypertension Kidney stones Surgical History (Updated 04/05/25 @ 15:08 by Summer Gottlieb CMA) History of placement of ear tubes Family History Mother FH: mental illness Depression Diabetes Father Substance abuse Alcoholism Maternal Grandfather Substance abuse Alcoholism Social History (Updated 05/18/25 @ 10:31 by Summer Gottlieb CMA) Housing: Apartment Alcohol intake: current Patient Tobacco Use Status: Current everyday Tobacco user Cigarette Packs Per Day: 1 Cigarettes Per Day: 20 Years Smoked: 20 e-Cigarette/Vaping Use: Never Used Second Hand Smoke Exposure: Yes service: No Current occupational status: employed Current occupation: [employer] Current occupational exposures/hazards: Yes Cognitive needs: No Hearing needs: Yes Vision needs: No Questionnaire Thrive Questionnaire Date Thrive assessed: 04/02/25 I am a: Patient What is your living situation today?: I have a place to live, but I am worried about losing it in the future Within the past 12 months, did the food you bought not last and you didn't have the money to get more?: Sometimes True Within the past 12 months, did you worry whether your food would run out before you got money to buy more?: Sometimes True Do you have trouble paying for medicines?: No Do you have trouble getting transportation to medical appointments?: No Do you have trouble paying your heating and electricity bill?: Yes Do you have trouble taking care of your child, family member or friend?: No Do you have trouble with day-to-day activities such as bathing, preparing meals, shopping, managing finances, etc.?: Yes Are you currently unemployed and looking for a job?: No Are you interested in more education?: No Currently or been in a relationship where the following occur: No concerns reported THRIVE Score: 4 AUDIT C Alcohol Use Questionnaire (AUDIT-C) 1. How often do you have a drink containing alcohol?: Never (Quit 05/04/2025 after going to the ER, other than drinking one time after being in the ER.) 3. How often do you have six or more drinks on one occasion?: Never Total Score: 0 CHRIS-7 AMB Questionnaire CHRIS-7 Date CHRIS - 7 assessed: 04/05/25 Source: Developed by Drs. Edgard Tello, Alexus Yu, Yosi Storm and colleagues, with an educational mumtaz from [employer]. Review of Systems Const Denies chills, Denies fatigue, Denies fever(s), Denies headache(s) and Denies weakness ENT Denies dizziness and Denies headache(s) Card Denies dyspnea Resp Denies cough, Denies dyspnea, Denies wheezing and Denies other (shortness of breath) Musc Denies numbness and Denies tingling Neuro Denies dizziness, Denies headache(s), Denies numbness, Denies tingling and Denies weakness Psych Denies anxiety and Denies depression Endo Denies fatigue Aller/Immun Denies wheezing Physical exam (Primary Care) Vital Signs: Last Vital Signs Temp 99.2 F 05/30/25 14:00 Pulse 111 H 05/30/25 14:00 Resp 16 05/30/25 14:00 BP 164/96 H 05/30/25 14:05 Pulse Ox 99 05/30/25 14:00 Oxygen Delivery Method Room Air 05/30/25 14:00 BMI result Body Mass Index 31.9 Tobacco/Smoking Status: Tobacco use Status Tobacco use date assessed 05/30/25 05/30/25 14:03 Patient Tobacco Use Status Current everyday Tobacco 05/30/25 13:56 e-Cigarette/Vaping Use Never Used 05/30/25 13:56 Thrive Assessment: Date of Thrive Assessment Date Thrive assessed 04/02/25 05/30/25 13:56 Currently or been in a relationship where the following occur: No concerns reported Const General: well developed; No acute distress Nutritional Appearance: well nourished Orientation/consciousness: patient oriented x3 [facility] Head: Yes normocephalic and Yes atraumatic Eyes General: appearance normal, both eyes and all related structures Pupils: Equal, round and reactive pupils present EOM: EOMs intact bilaterally Resp Effort & Inspection: normal respiratory effort Cardio Rate: tachycardic Neuro General: patient oriented x3 and gait normal Cranial nerves: Yes Equal, round and reactive pupils present Psych Affect: normal affect Results AMB Hemoglobin A1c AMB Hemoglobin A1c 8.2 % Last Edit by Esme Knox CMA on 05/30/25 14:22 Results Reviewed Results Reviewed: Laboratory Last Values Hgb A1c (Clinic) 8.2 % (4.0-6.0) H 05/30/25 14:18 Coding Level of Care Code Est Pt Level 4 (56097) Diagnoses Hypertension I10 Mixed hyperlipidemia E78.2 Elevated liver enzymes R74.8 Alcohol abuse F10.10 Uncontrolled diabetes mellitus with hyperglycemia E11.65 Assessment & Plan Assessment & Plan (1) Hypertension: Code(s): I10 - Essential (primary) hypertension Category: Medical Plan: Blood pressures are again high with tachycardia He notes that he was drinking again on or Friday. Likely partly due to withdrawal. He is taking his blood pressure medications as prescribed Will continue labetalol as prescribed and he can increase amlodipine when systolic blood pressure greater than 140. Check blood pressures at home (2) Mixed hyperlipidemia: Code(s): E78.2 - Mixed hyperlipidemia Category: Medical Plan: Triglycerides much improved with decrease in alcohol and treatment of hyperglycemia Will continue to monitor. He is unable to swallow pills and so unable to take fenofibrate May not need medication for triglycerides if he is able to abstain from alcohol and control his blood sugars. Will continue to monitor (3) Elevated liver enzymes: Code(s): R74.8 - Abnormal levels of other serum enzymes Category: Medical Plan: Liver enzymes are elevated, likely secondary to alcohol as well as obesity and dehydration Encouraged abstinence from alcohol Will continue to monitor Hydrate well (4) Alcohol abuse: Code(s): F10.10 - Alcohol abuse, uncomplicated Category: Social Hx Plan: [facility] Patient notes that he did drink alcohol late last week He says that he is again abstaining from alcohol and I encouraged this Follow-up with addiction medicine as recommended (5) Uncontrolled diabetes mellitus with hyperglycemia: Code(s): E11.65 - Type 2 diabetes mellitus with hyperglycemia Category: Medical Plan: Metformin was discontinued while patient was in hospital for acute kidney injury. Repeat lab work shows that renal function is back within normal range. Can resume metformin. Orders: Orders AMB Hemoglobin A1c Today E11.65 - Type 2 diabetes mellitus with hyperglycemia Medications: New blood pressure monitor Automatic, Digital. Dx: I10. Daily As directed, 999 days/lifetime 1 ea 0RF I10 - Essential (primary) hypertension Changed From amlodipine 5 mg PO BID To amlodipine 10 mg (2 x 5 mg) PO BID 360 tabs 2RF 90 days Refilled metformin 500 mg PO BIDWMEAL 180 tabs 2RF 90 days
[2025-05-30 14:00] VITALS: BP 164/94; PULSE 111; RESP 16; TEMP 37.3; O2SAT 99; BMI 31.9
[2025-05-30 14:05] VITALS: BP 164/96
[2025-05-30 14:51] VITALS: BP 142/80
== END 2025-05-30 14:53 | disposition home or self-care (01) ==
LOC: HO.HMCFM 13:44
PROVIDERS: PCP Family Medicine; Visit Provider Family Medicine
DX: I10 Essential (primary) hypertension (principal); E11.65 Type 2 diabetes mellitus with hyperglycemia; E78.2 Mixed hyperlipidemia; R74.8 Abnormal levels of other serum enzymes; F10.10 Alcohol abuse, uncomplicated

== ENCOUNTER → 2025-05-30 13:43 | Outpatient (BNVA) | payer OTHER, SELFPAY | PROVIDERS: PCP Family Medicine; Visit Provider Family Medicine | DX: I10 Essential (primary) hypertension (principal); E78.2 Mixed hyperlipidemia; R74.8 Abnormal levels of other serum enzymes; F10.10 Alcohol abuse, uncomplicated; E11.65 Type 2 diabetes mellitus with hyperglycemia | CPT/HCPCS: 83036 ==